=== PATIENT | female | born 1990 | race Caucasian/White ===

== ENCOUNTER 2017-01-03 19:37 | Emergency (ER) | payer OTHER ==
[~2017-01-03] VITALS: Ht 165.1 cm; Wt 72.6 kg
[~2017-01-03 19:37] MED LIST: ABREVA2 GM TOP; APAP/CODEINE ELI5 M1 OR; BACTRIM DS TAB1 EACH PO; CEPHALEXIN 500500 M1 PO; DARVOCET-N 1001 EACH PO; IRON SUPPLEMENT PO; KEFLEX500 MG PO; LORTAB 5 MG/5001 TA1 PO; MEDROLDOSEPACK PO; NOHOMEMEDICATIONS; NORCO 5-325 TA1 EACH PO; NYSTATIN 1100000 U/M OR; PENICILLIN V P500 MG PO; PHENERGAN 25 MG25 M1 PO; PRENA1 SOFTGEL1 EACH; VIBRAMYCIN 100100 MG PO; ZOFRAN ODT4 MG PO
[2017-01-03] MEDS ORDERED: LEXAPRO20 MG PO (19:43)
[2017-01-03] MEDS ORDERED: CLONAZEPAM 0.50.5 M1 PO (19:43)
[2017-01-03 21:32] VITALS: BP 110/63
== END 2017-01-03 21:30 | disposition home or self-care (01) ==
LOC: ER 19:37
DX: S61.412A Laceration without foreign body of left hand, initial encounter (principal); F17.210 Nicotine dependence, cigarettes, uncomplicated; Z90.49 Acquired absence of other specified parts of digestive tract; Z88.6 Allergy status to analgesic agent; Z88.2 Allergy status to sulfonamides; W22.8XXA Striking against or struck by other objects, initial encounter; Y93.89 Activity, other specified; Y92.89 Other specified places as the place of occurrence of the external cause; Y99.8 Other external cause status

== ENCOUNTER 2018-04-15 17:05 | Emergency (ER) | payer OTHER ==
[~2018-04-15] VITALS: Ht 162.6 cm; Wt 74.8 kg
[~2018-04-15 17:05] MED LIST changes: +ABILIFY15 MG PO; +CLONAZEPAM 0.50.5 M1 PO; +CYCLOBENZAPRINE5 MG PO; +GABAPENTIN 100100 MG PO; +LEXAPRO20 MG PO; +PREDNISONE 20 M20 MG PO; +ULTRAM 50MG TAB50 MG PO
[2018-04-15 17:17] VITALS: BP 138/72
[2018-04-15] MEDS ORDERED: CLEOCIN HCL150 MG PO (17:27)
== END 2018-04-15 17:50 | disposition home or self-care (01) ==
LOC: ER 17:05
DX: N61.1 Abscess of the breast and nipple (principal); F17.210 Nicotine dependence, cigarettes, uncomplicated; Z90.49 Acquired absence of other specified parts of digestive tract; Z88.2 Allergy status to sulfonamides

== ENCOUNTER 2018-05-31 11:25 | Emergency (ER) | payer OTHER ==
[~2018-05-31] VITALS: Ht 162.6 cm; Wt 79.4 kg
[~2018-05-31 11:25] MED LIST changes: +CLEOCIN HCL150 MG PO
[2018-05-31 11:41] LABS: URINE BILIRUBIN NEGATIVE (Negative); URINE BLOOD NEGATIVE (Negative); URINE CLARITY SL CLOUDY; URINE COLOR YELLOW; URINE GLUCOSE-RANDOM* NEGATIVE (Negative); URINE KETONES NEGATIVE (Negative); URINE NITRITE-REFLEX NEGATIVE (Negative); URINE PROTEIN (DIPSTICK) NEGATIVE (Negative)
[2018-05-31 11:42] LABS: URINE LEUKOCYTES-REFLEX 2+ (Negative)
[2018-05-31 11:57] LABS: SQUAMOUS >10 Many /LPF (0-3)
[2018-05-31 11:58] LABS: CASTS None Seen /LPF (None Seen); URINE WBC-REFLEX 6-15 Few /HPF (0-5)
[2018-05-31 11:59] LABS: AMORPHOUS PHOSPHATES Moderate /LPF (None Seen); BACTERIA-REFLEX 1-9 Few /HPF (None Seen); URINE RBC None Seen /HPF (0-2)
[2018-05-31 12:01] LABS: ABSOLUTE NEUTROPHILS 6.5 thou/uL (1.4-8.2); BASOPHILS 0.6 % (0.0-2.0); HEMATOCRIT 39.1 % (37.0-47.0); HEMOGLOBIN 13.5 gm/dL (12.0-15.0); LYMPHOCYTES 21.1 % (24.0-44.0); MCH 29.5 pg (26.0-34.0); MCHC 34.5 g/dL (28.0-37.0); MCV 85.7 fL (80.0-100.0); MONOCYTES 5.2 % (1.0-8.0); POLYS 72.1 % (36.0-66.0); RBC 4.56 mil/uL (4.20-5.00); RDW 13.2 % (10.5-14.5); WBC 8.9 thou/uL (4.0-11.0)
[2018-05-31 12:10] LABS: CALCIUM 9.7 mg/dL (8.5-10.1); CREATININE 0.7 mg/dL (0.6-1.0)
[2018-05-31 12:16] LABS: ALBUMIN 3.9 g/dL (3.4-5.0); TOTAL BILIRUBIN 0.2 mg/dL (<0.1-1.0); TOTAL PROTEIN 7.7 g/dL (6.4-8.2)
[2018-05-31 12:27] LABS: PLATELET COUNT 217 thou/uL (150-400); PLATELET ESTIMATE NORMAL
[2018-05-31] MEDS ORDERED: ONDANSETRON HCL4 M2 PO (13:50)
[2018-05-31] MEDS ORDERED: KEFLEX500 M1 PO (13:50)
[2018-05-31] MEDS ORDERED: DICLEGIS DR 101 EACH PO (13:50)
[2018-05-31 14:05] VITALS: BP 129/49
== END 2018-05-31 14:18 | disposition home or self-care (01) ==
LOC: ER 11:25
PROVIDERS: Physician Assistant
DX: O26.891 Other specified pregnancy related conditions, first trimester (principal); O21.8 Other vomiting complicating pregnancy; R10.31 Right lower quadrant pain; F17.210 Nicotine dependence, cigarettes, uncomplicated; Z88.6 Allergy status to analgesic agent; Z88.2 Allergy status to sulfonamides; Z88.8 Allergy status to other drugs, medicaments and biological substances; Z90.49 Acquired absence of other specified parts of digestive tract; Z3A.08 8 weeks gestation of pregnancy

== ENCOUNTER 2018-10-26 12:27 | Emergency (ER) | payer OTHER ==
[~2018-10-26] VITALS: Ht 162.6 cm; Wt 86.2 kg
[~2018-10-26 12:27] MED LIST changes: +DICLEGIS DR 101 EACH PO; +KEFLEX500 M1 PO; +ONDANSETRON HCL4 M2 PO
[2018-10-26 12:57] VITALS: BP 118/76
[2018-10-26] MEDS ORDERED: APAP650 PO (13:00)
== END 2018-10-26 12:57 | disposition home or self-care (01) ==
LOC: ER 12:27
DX: O9A.213 Injury, poisoning and certain other consequences of external causes complicating pregnancy, third trimester (principal); S39.011A Strain of muscle, fascia and tendon of abdomen, initial encounter; F17.210 Nicotine dependence, cigarettes, uncomplicated; Z88.6 Allergy status to analgesic agent; Z88.8 Allergy status to other drugs, medicaments and biological substances; Z90.49 Acquired absence of other specified parts of digestive tract; Z3A.30 30 weeks gestation of pregnancy; X50.1XXA Overexertion from prolonged static or awkward postures, initial encounter; Y92.89 Other specified places as the place of occurrence of the external cause; Y93.89 Activity, other specified; Y99.8 Other external cause status

== ENCOUNTER 2019-09-26 19:00 | Emergency (ER) | payer OTHER ==
[~2019-09-26] VITALS: Ht 162.6 cm; Wt 70.3 kg
[~2019-09-26 19:00] MED LIST changes: +APAP650 PO
[2019-09-26] MEDS ORDERED: PROZAC20 M1 PO ×2 (19:06→19:07)
[2019-09-26 20:00] LABS: URINE BILIRUBIN NEGATIVE (Negative); URINE BLOOD NEGATIVE (Negative); URINE CLARITY CLEAR; URINE COLOR YELLOW; URINE GLUCOSE-RANDOM* NEGATIVE (Negative); URINE KETONES NEGATIVE (Negative); URINE LEUKOCYTES-REFLEX 3+ (Negative); URINE NITRITE-REFLEX NEGATIVE (Negative); URINE PROTEIN (DIPSTICK) NEGATIVE (Negative); URINE SPECIFIC GRAVITY 1.015 (1.005-1.035)
[2019-09-26 20:08] LABS: SQUAMOUS >10 Many /LPF (0-3); URINE WBC-REFLEX >25 Many /HPF (0-5)
[2019-09-26 20:09] LABS: CASTS None Seen /LPF (None Seen); CRYSTALS None Seen /LPF (None Seen); URINE RBC 3-10 Few /HPF (0-2)
[2019-09-26] MEDS ORDERED: NAPROSYN500 MG PO (20:25)
[2019-09-26] MEDS ORDERED: FLAGYL500 M1 PO (20:25)
[2019-09-26] MEDS ORDERED: TYLENOL WITH CO1 TA1 PO (21:01)
[2019-09-26 21:08] VITALS: BP 121/77
== END 2019-09-26 21:09 | disposition home or self-care (01) ==
LOC: ER 19:00
PROVIDERS: Physician Assistant
DX: M65.4 Radial styloid tenosynovitis [de Quervain] (principal); A59.01 Trichomonal vulvovaginitis; F17.210 Nicotine dependence, cigarettes, uncomplicated; M25.531 Pain in right wrist; Z88.6 Allergy status to analgesic agent; Z88.1 Allergy status to other antibiotic agents; Z88.8 Allergy status to other drugs, medicaments and biological substances; Z79.899 Other long term (current) drug therapy; Z98.890 Other specified postprocedural states; X50.0XXA Overexertion from strenuous movement or load, initial encounter; Y93.89 Activity, other specified; Y92.89 Other specified places as the place of occurrence of the external cause; Y99.9 Unspecified external cause status

== ENCOUNTER 2020-12-14 21:20 | Emergency (ER) | payer OTHER ==
[~2020-12-14] VITALS: Ht 162.6 cm; Wt 63.5 kg
[~2020-12-14 21:20] MED LIST changes: +FLAGYL500 M1 PO; +NAPROSYN500 MG PO; +PROZAC20 M1 PO; +TYLENOL WITH CO1 TA1 PO
[2020-12-14 21:38] VITALS: BP 130/76
[2020-12-14 21:54] LABS: URINE BILIRUBIN NEGATIVE (Negative); URINE BLOOD TRACE (Negative); URINE CLARITY CLEAR; URINE COLOR YELLOW; URINE GLUCOSE-RANDOM* NEGATIVE (Negative); URINE KETONES NEGATIVE (Negative); URINE LEUKOCYTES-REFLEX NEGATIVE (Negative); URINE NITRITE-REFLEX NEGATIVE (Negative); URINE PROTEIN (DIPSTICK) NEGATIVE (Negative); URINE SPECIFIC GRAVITY 1.025 (1.005-1.035); URINE UROBILINOGEN 0.2 E.U./dl (0.2-1.0)
[2020-12-14] MEDS ORDERED: CEPHALEXIN 250250 M1 PO (23:40)
== END 2020-12-14 23:30 | disposition home or self-care (01) ==
LOC: ER 21:20
PROVIDERS: Emergency Medicine
DX: S16.1XXA Strain of muscle, fascia and tendon at neck level, initial encounter (principal); S90.811A Abrasion, right foot, initial encounter; M79.672 Pain in left foot; F17.210 Nicotine dependence, cigarettes, uncomplicated; Z90.49 Acquired absence of other specified parts of digestive tract; Z88.2 Allergy status to sulfonamides; Z88.6 Allergy status to analgesic agent; V89.2XXA Person injured in unspecified motor-vehicle accident, traffic, initial encounter; Y93.19 Activity, other involving water and watercraft; Y92.89 Other specified places as the place of occurrence of the external cause; Y99.8 Other external cause status

== ENCOUNTER 2020-12-24 20:22 | Emergency (ER) | payer OTHER ==
[~2020-12-24] VITALS: Ht 162.6 cm; Wt 63.5 kg
[~2020-12-24 20:22] MED LIST changes: +CEPHALEXIN 250250 M1 PO
[2020-12-24] MEDS ORDERED: DOXYCYCLINE 10100 M2 PO (21:57)
[2020-12-24 22:28] VITALS: BP 122/54
== END 2020-12-24 22:28 | disposition home or self-care (01) ==
LOC: ER 20:22
DX: L03.115 Cellulitis of right lower limb (principal); F17.210 Nicotine dependence, cigarettes, uncomplicated; Z88.2 Allergy status to sulfonamides; Z90.49 Acquired absence of other specified parts of digestive tract; Z88.5 Allergy status to narcotic agent; Z88.6 Allergy status to analgesic agent

== ENCOUNTER 2021-06-01 18:09 | Emergency (ER) | payer OTHER ==
[~2021-06-01] VITALS: Ht 162.6 cm; Wt 65.8 kg
[~2021-06-01 18:09] MED LIST changes: +DOXYCYCLINE 10100 M2 PO
[2021-06-01 18:59] LABS: URINE BILIRUBIN NEGATIVE (Negative); URINE BLOOD NEGATIVE (Negative); URINE CLARITY CLEAR; URINE COLOR YELLOW; URINE GLUCOSE-RANDOM* NEGATIVE (Negative); URINE KETONES NEGATIVE (Negative); URINE LEUKOCYTES-REFLEX TRACE (Negative); URINE NITRITE-REFLEX NEGATIVE (Negative); URINE PROTEIN (DIPSTICK) NEGATIVE (Negative); URINE SPECIFIC GRAVITY <= 1.005 (1.005-1.035); URINE UROBILINOGEN 0.2 E.U./dl (0.2-1.0)
[2021-06-01 18:59] LABS: ABSOLUTE NEUTROPHILS 6.4 thou/uL (1.4-8.2); BASOPHILS 0.7 % (0.0-2.0); EOSINOPHILS 5.4 % (0.0-3.0); HEMATOCRIT 38.6 % (37.0-47.0); HEMOGLOBIN 13.2 gm/dL (12.0-15.0); MCH 29.9 pg (26.0-34.0); MCHC 34.1 g/dL (28.0-37.0); MCV 87.7 fL (80.0-100.0); MONOCYTES 4.3 % (1.0-8.0); PLATELET COUNT 213 thou/uL (150-400); POLYS 63.6 % (36.0-66.0); RBC 4.41 mil/uL (4.20-5.00); RDW 12.9 % (10.5-14.5); WBC 10.1 thou/uL (4.0-11.0)
[2021-06-01 19:09] LABS: ANION GAP 7 mmol/L (7-16); BUN 18 mg/dL (7-18); CALCIUM 8.9 mg/dL (8.5-10.1); CHLORIDE 104 mmol/L (98-107); CO2 28 mmol/L (21-32); CREATININE 0.8 mg/dL (0.6-1.0); GLUCOSE 74 mg/dL (74-106); POTASSIUM 3.6 mmol/L (3.5-5.1); SODIUM 139 mmol/L (136-145)
[2021-06-01 19:15] LABS: ALBUMIN 3.8 g/dL (3.4-5.0); AMYLASE 57 U/L (25-115); DIRECT BILIRUBIN < 0.1 mg/dL (<0.1-0.2); LIPASE 55 U/L (73-393); SGOT 19 U/L (15-37); SGPT 25 U/L (30-65); TOTAL BILIRUBIN 0.4 mg/dL (0.2-1.0); TOTAL PROTEIN 7.1 g/dL (6.4-8.2)
[2021-06-01] MEDS ORDERED: NORCO5 PO (22:17)
[2021-06-01 22:35] VITALS: BP 118/75
== END 2021-06-01 22:36 | disposition home or self-care (01) ==
LOC: ER 18:09
PROVIDERS: Emergency Medicine
DX: N83.202 Unspecified ovarian cyst, left side (principal); F17.210 Nicotine dependence, cigarettes, uncomplicated; Z98.890 Other specified postprocedural states; Z90.49 Acquired absence of other specified parts of digestive tract; Z88.2 Allergy status to sulfonamides; Z88.6 Allergy status to analgesic agent; Z88.8 Allergy status to other drugs, medicaments and biological substances